=== PATIENT | female | born 1975 | race Hispanic/Latino ===

== ENCOUNTER 2022-11-14 12:29 | Emergency (ER) | payer OTHER ==
[~2022-11-14] VITALS: Ht 177.8 cm; Wt 77.1 kg
[2022-11-14 12:39] VITALS: BP 110/76; PULSE 74; RESP 14
== END 2022-11-14 14:55 | disposition home or self-care (01) ==
LOC: EDH 12:29
DX: H92.01 Otalgia, right ear (principal); R51.9 Headache, unspecified; E11.9 Type 2 diabetes mellitus without complications; Z90.710 Acquired absence of both cervix and uterus; Z98.890 Other specified postprocedural states; V89.2XXA Person injured in unspecified motor-vehicle accident, traffic, initial encounter; Y93.89 Activity, other specified; Y92.89 Other specified places as the place of occurrence of the external cause; Y99.8 Other external cause status